=== PATIENT | male | born 1980 | race Hispanic/Latino ===

== ENCOUNTER 2016-09-29 12:23 | Emergency (ER) | payer BC ==
[2014-09-27 11:29] VITALS: BMI 36.2
[2016-09-29 12:43] VITALS: BP 135/74; PULSE 85; RESP 19; TEMP 97.9; O2SAT 98
[2016-09-29] MEDS ORDERED: Lidocaine 1% Inj (20ml) IJ STA (13:22)
[2016-09-29] MEDS ORDERED: TDAP Vaccine 0.5 mL Syr IM ONE (13:22)
--- NOTE | 2016-09-29 13:46 | ED PDOC ---
Arrival/HPI - General Chief Complaint: Abnormal Skin Integrity Time Seen by Provider: 09/29/16 13:00 Historian: Patient - History of Present Illness Narrative History of Present Illness (Text): 09/29/16 13:41 Patient presents to the emergency room complaining of laceration to the left second digit which occurred prior to arrival when he was using a knife to open a package of van. Denies any decrease in range of motion, numbness, any other injury. Has no other complaints at this time. tetanus not UTD PMD Neymar Past Medical History - Provider Review Nursing Documentation Reviewed: Yes - Infectious Disease Hx of Infectious Diseases: None - Cardiac Hx Pacemaker: No - Neurological Hx Paralysis: No - Hematological/Oncological Hx Blood Transfusions: No - Musculoskeletal/Rheumatological Hx Musculoskeletal Disorders: No - Psychiatric Hx Physical Abuse: No Hx Substance Use: No - Surgical History Other/Comment: right ankle repair 6 mos ago, with screws implant - Anesthesia Hx Anesthesia: Yes Hx Anesthesia Reactions: No Hx Malignant Hyperthermia: No - Suicidal Assessment Feels Threatened In Home Enviroment: No Family/Social History - Physician Review Nursing Documentation Reviewed: Yes Family/Social History: No Known Family HX Smoking Status: Light Smoker < 10 Cigarettes Daily Hx Alcohol Use: Yes (SOCIALLY 4 X A WEEK) Frequency of alcohol use: Socially Hx Substance Use: No Allergies/Home Meds Allergies/Adverse Reactions: Allergies No Known Allergies Allergy (Verified 09/29/16 12:43) Home Medications: Home Meds Medication Instructions Recorded Confirmed Omeprazole [Omeprazole] 40 mg PO DAILY 09/28/14 09/29/16 Review of Systems - Review of Systems Constitutional: Normal. absent: Fatigue, Fevers Musculoskeletal: Normal. absent: Arthralgias, Back Pain Skin: Normal. absent: Rash, Pruritis, Skin Lesions Physical Exam - Physical Exam Narrative Physical Exam (Text): 09/29/16 13:42 GENERAL APPEARANCE: Patient is awake, alert, oriented x 3, in no acute distress. SKIN: Warm, (-) rash, (-) lesions. UPPER EXTREMITY: (+) 1.5 cm V shaped laceration to the distal volar aspect of the L 2nd digit. (-) Tenderness, (-) swelling, (-) ecchymosis; (-) crepitus, (- ) deformity. Tendon function intact. (-) distal neurovascular deficit. 2 point discrimination. Remainder of hand, digits and wrist: (-) injury. Vital Signs Temp Pulse Resp BP Pulse Ox 09/29/16 13:15 97.9 F 85 19 135/74 98 09/29/16 12:36 97.9 F 85 19 135/74 98 Medical Decision Making ED Course and Treatment: 09/29/16 13:43 36 yo M presents with laceration to the L 2nd digit. The wound is L 2nd digit. The wound was copiously irrigated with normal saline. The wound was prepped and draped in the normal sterile fashion. The wound was explored for foreign bodies and none were found. The wound was anesthetised using lidocaine. The edges were reapproximated using 3, 5-0 prolene sutures by VEENA. Bleeding was well controlled and the patient tolerated the procedure well. Based on history and exam, plan will be for outpatient follow up. Patient states he fully agrees with and understands discharge instructions. States that he agrees with the plan and disposition. Verbalized and repeated discharge instructions and plan. I have given the patient opportunity to ask any additional questions. Follow up with primary care physician in 1-2 days without fail for wound check. Return to the emergency room at any time for any new or worsening symptoms. - Medication Orders Current Medication Orders: Discontinued Medications Lidocaine HCl (Lidocaine 1% (20ml)) 3 ml IJ STAT STA Stop: 09/29/16 13:23 Last Admin: 09/29/16 13:30 Dose: 3 ML Tetanus/Reduced Diphtheria/Acell Pertussis (Boostrix Vaccine Inj) 0.5 ml IM .ONCE ONE Stop: 09/29/16 13:23 Last Admin: 09/29/16 13:29 Dose: 0.5 ML [facility] Immunization Data Document 09/29/16 13:29 OCS (Rec: 09/29/16 13:30 OCS [id number]) Immunization Data Vaccine Lot Number [id number] Vaccine Expiration Date 09/20/18 - PA / [employer] / Resident Statement /DO has reviewed & agrees with the documentation as recorded. Disposition/Present on Arrival - Present on Arrival Any Indicators Present on Arrival: No History of DVT/PE: No History of Uncontrolled Diabetes: No Urinary Catheter: No History of Decub. Ulcer: No History Surgical Site Infection Following: None - Disposition Have Diagnosis and Disposition been Completed?: Yes Diagnosis: Finger laceration Disposition: HOME/ ROUTINE Disposition Time: 13:46 Patient Plan: Discharge Condition: STABLE Discharge Instructions (ExitCare): Finger Laceration (ED) Print Language: VENE[place] Additional Instructions: Thank you for letting us take care of you today. You were treated for finger laceration. The emergency medical care you received today was directed at your acute symptoms. Return to the Emergency Department if your symptoms worsen, do not improve, or if you have any other problems. Please contact your doctor in 2 days for re-evaluation and follow up for wound check, have sutures removed after 7 days. Bring any paperwork you were given at discharge with you along with any medications you are taking to your follow up visit. Our treatment cannot replace ongoing medical care by a primary care provider (PCP) outside of the emergency department. Thank you for allowing the [email or web address] team to be part of your care today. Forms: WORK NOTE
== END 2016-09-29 14:00 | disposition home or self-care (01) ==
LOC: ED 12:23
DX: S61.211A Laceration without foreign body of left index finger without damage to nail, initial encounter (principal); W26.0XXA Contact with knife, initial encounter

== ENCOUNTER 2016-10-06 12:53 | Emergency (ER) | payer BC ==
[2016-10-06 12:53] VITALS: BMI 36.2
[2016-10-06 13:04] VITALS: BP 125/85; PULSE 90; RESP 18; TEMP 98.1; O2SAT 97
--- NOTE | 2016-10-06 13:08 | ED PDOC ---
Arrival/HPI - General Chief Complaint: Suture/Staple Removal Time Seen by Provider: 10/06/16 13:05 Historian: Patient - History of Present Illness Narrative History of Present Illness (Text): 10/06/16 13:06 36yo male who present to ED for suture removal. sutures was placed here on . He denies purulent discharge, fever, any other complaint. Past Medical History - Provider Review Nursing Documentation Reviewed: Yes - Infectious Disease Hx of Infectious Diseases: None - Cardiac Hx Pacemaker: No - Neurological Hx Paralysis: No - Hematological/Oncological Hx Blood Transfusions: No - Musculoskeletal/Rheumatological Hx Musculoskeletal Disorders: No - Psychiatric Hx Physical Abuse: No Hx Substance Use: No - Surgical History Hx Musculoskeletal Surgery: Yes Other/Comment: right ankle repair 6 mos ago, with screws implant - Anesthesia Hx Anesthesia: Yes Hx Anesthesia Reactions: No Hx Malignant Hyperthermia: No - Suicidal Assessment Feels Threatened In Home Enviroment: No Family/Social History - Physician Review Nursing Documentation Reviewed: Yes Family/Social History: Unknown Family HX Smoking Status: Light Smoker < 10 Cigarettes Daily Hx Alcohol Use: Yes (SOCIALLY 4 X A WEEK) Hx Substance Use: No Allergies/Home Meds Allergies/Adverse Reactions: Allergies No Known Allergies Allergy (Verified 10/06/16 13:04) Home Medications: Home Meds Medication Instructions Recorded Confirmed Omeprazole [Omeprazole] 40 mg PO DAILY 09/28/14 10/06/16 Review of Systems - Physician Review All systems were reviewed & negative as marked: Yes - Review of Systems Constitutional: Normal Eyes: Normal ENT: Normal Respiratory: Normal Cardiovascular: Normal Gastrointestinal: Normal Genitourinary Male: Normal Musculoskeletal: Normal Skin: Other (suture removal) Neurological: Normal Endocrine: Normal Hemo/Lymphatic: Normal Psychiatric: Normal Physical Exam Vital Signs Reviewed: Yes Vital Signs Temp Pulse Resp BP Pulse Ox 10/06/16 13:01 98.1 F 90 18 125/85 97 Temperature: Afebrile Blood Pressure: Normal Pulse: Regular Respiratory Rate: Normal Appearance: Positive for: Well-Appearing, Non-Toxic, Comfortable Pain Distress: None Mental Status: Positive for: Alert and Oriented X 3 - Systems Exam Head: Present: Atraumatic, Normocephalic Pupils: Present: PERRL Extroacular Muscles: Present: EOMI Conjunctiva: Present: Normal Mouth: Present: Moist Mucous Membranes Neck: Present: Normal Range of Motion Respiratory/Chest: Present: Clear to Auscultation, Good Air Exchange. No: Respiratory Distress, Accessory Muscle Use Cardiovascular: Present: Regular Rate and Rhythm, Normal S1, S2. No: Murmurs Abdomen: Present: Normal Bowel Sounds. No: Tenderness, Distention, Peritoneal Signs Back: Present: Normal Inspection Upper Extremity: Present: Normal Inspection. No: Cyanosis, Edema Lower Extremity: Present: Normal Inspection. No: Edema Neurological: Present: GCS=15, CN II-XII Intact, Speech Normal Skin: Present: Warm, Dry, Normal Color, Other (3sutures noted in place to left second finger. No erythema. No purulent discharge noted. No sign of infection). No: Rashes Psychiatric: Present: Alert, Oriented x 3, Normal Insight, Normal Concentration Medical Decision Making ED Course and Treatment: 10/06/16 13:17 suture area cleaned with betadine. 3sutures removed. Edges appear well approximated. Cleansed , bacitracine applied and dressed. PT advised to keep wound clean and dry. Referred to his PMD. TRT ED for any new or worsening symptoms Disposition/Present on Arrival - Present on Arrival Any Indicators Present on Arrival: No History of DVT/PE: No History of Uncontrolled Diabetes: No Urinary Catheter: No History of Decub. Ulcer: No History Surgical Site Infection Following: None - Disposition Have Diagnosis and Disposition been Completed?: Yes Diagnosis: Visit for suture removal Disposition: HOME/ ROUTINE Disposition Time: 13:10 Patient Plan: Discharge Condition: STABLE Discharge Instructions (ExitCare): Stitches Removal (ED) Additional Instructions: Keep wound clean and dry Follow up with your doctor Return to ED for any new or worsening symptoms Referrals: [facility] [Outside] - Follow up with primary
== END 2016-10-06 13:16 | disposition home or self-care (01) ==
LOC: ED 12:53
DX: Z48.02 Encounter for removal of sutures (principal)